=== PATIENT | female | born 1990 | race Asian ===

== ENCOUNTER 2020-05-29 13:30 | Emergency (ER) | payer MEDICAID, OTHER ==
[~2020-05-29] VITALS: Ht 162.6 cm; Wt 65.8 kg
[2020-05-29] MEDS ORDERED: TETANUS-DIPTH-ACEL PERTUSSIS 0.5ML SYR Tdap IM ONE (14:00)
[2020-05-29 14:10] VITALS: BP 131/89
== END 2020-05-29 14:35 | disposition home or self-care (01) ==
LOC: ER 13:30
DX: S81.811A Laceration without foreign body, right lower leg, initial encounter (principal); W26.8XXA Contact with other sharp object(s), not elsewhere classified, initial encounter; Y93.89 Activity, other specified; Y92.89 Other specified places as the place of occurrence of the external cause; Y99.8 Other external cause status
CPT/HCPCS: 12001; 90715